=== PATIENT | female | born 1995 | race African-American/Black ===

== ENCOUNTER 2017-11-19 17:33 | Emergency (ER) | payer SELFPAY ==
[~2017-11-19] VITALS: Ht 162.6 cm; Wt 76.0 kg
[2017-11-20] MEDS ORDERED: IBUPROFEN 400MG TABLET PO ONE (02:30)
[2017-11-20 02:40] LABS: BASOPHILS % 0.6 % (0.0-2.0); EOSINOPHILS % 1.3 % (0.0-5.0); HEMOGLOBIN. 9.7 g/dL (12.0-16.0); LYMPHOCYTES % 30.1 % (20.0-50.0); MEAN CORPUSCULAR HEMOGLOBIN 27.5 pg (28.0-32.0); MEAN PLATELET VOLUME 8.4 fl (7.4-10.4); MONOCYTES % 5.6 % (2.0-8.0); NEUTROPHILS % 62.4 % (40.0-76.0); PLATELET 290 x1000/uL (130-400); RED BLOOD CELL COUNT 3.54 mill/uL (4.2-5.4); RED CELL DISTRIBUTION WIDTH 14.4 % (11.6-14.6)
[2017-11-20 02:46] LABS: HCG SCREEN NEGATIVE
[2017-11-20 02:48] LABS: CARBON DIOXIDE 24 mEq/L (21-32); CHLORIDE 106 mEq/L (98-107)
[2017-11-20 03:31] VITALS: BP 112/81
[2017-11-20] MEDS ORDERED: SODIUM CHLORIDE 0.9% 1,000 ML IV ONE (03:45)
== END 2017-11-20 05:51 | disposition home or self-care (01) ==
LOC: ER 18:38
DX: N93.9 Abnormal uterine and vaginal bleeding, unspecified (principal); N92.6 Irregular menstruation, unspecified; R10.2 Pelvic and perineal pain; F17.200 Nicotine dependence, unspecified, uncomplicated
CPT/HCPCS: 36415; 76830; 76856; 80053; 84703; 85025; 86850; 86870; 86900; 99285; J7030